=== PATIENT | female | born 1945 | race Caucasian/White ===

== ENCOUNTER 2019-09-30 13:21 | Inpatient (IN) ==
[2019-09-30] MEDS ORDERED: MAGNESIUM SULFATE 2 GM/50 ML BAG IV PRN (14:48)
[2019-09-30] MEDS ORDERED: POTASSIUM CHLORIDE 20 MEQ PACKET PO PRN (14:48)
[2019-09-30] MEDS ORDERED: ACETAMINOPHEN 325 MG TABLET PO PRN (14:48)
[2019-09-30] MEDS ORDERED: METOPROLOL TARTRATE 5 MG/5 ML VIAL IV PRN (14:48)
[2019-09-30] MEDS ORDERED: POLYETHYLENE GLYCOL 3350 17 GM PACKET PO PRN (14:48)
[2019-09-30] MEDS ORDERED: MELATONIN 3 MG TABLET PO PRN (14:48)
[2019-09-30] MEDS ORDERED: ONDANSETRON 4 MG ODT TABLET SL PRN (14:48)
[2019-09-30] MEDS ORDERED: BISACODYL 10 MG SUPP.RECT PR PRN (14:48)
[2019-09-30] MEDS ORDERED: ONDANSETRON 4 MG/2 ML VIAL IV PRN (14:48)
[2019-09-30] MEDS ORDERED: HYDROcodone/APAP 5/325MG TABLET PO PRN (14:48)
[2019-09-30] MEDS ORDERED: hydrALAZINE 20 MG/ML VIAL IV PRN (14:48)
[2019-09-30] MEDS ORDERED: ACETAMINOPHEN 650 MG/65 ML BOTTLE IV PRN (14:48)
--- NOTE | 2019-09-30 14:55 | Internal Med History&Physical ---
HPI History of Present Illness Patient information: Note initiated : 09/30/19 at 2:50 pm Service Date, if different from initiated Date: [] Patient: Jayne Mcknight a 74 y/o F admitted on 09/30/19 for Ankle Fracture . Chief Complaint: [] History of present illness: Ms. Mcknight is a 74 year old F with a history of PMR/COPD/CKD who normally uses a walker to ambulate. Patient lives in [place] and is out fertilizing her tomato plants when she got off balance and fell landing on her right side sustaining injury to the ankle. She was taken to the [place] ER where initial work-up was consistent with fracture dislocation right ankle. She underwent reduction and subsequently orthopedics was consulted. Orthopedic [facility] care for surgical intervention. I received a verbal signout from Madison garcia at [place] on telephone. On arrival patient is alert and oriented. She denies active distress except for pain. She endorses history as above. She denies respiratory events including lightheadedness dizziness, chest pain, palpitation. Labs and medication list was reviewed Review of systems 10 point review system was performed and is negative except for ones cussed above PFSH PFS Social History (Updated 09/30/19 @ 23:03 by Jameson Smith MD) smoking status: Never smoker additional history: No history of smoking alcoholism Lives alone Family history Diabetes father Leukemia mother MEDS/ALLERGIES Home Medications and Allergies Home Medications Medication Instructions Recorded Confirmed Type gabapentin [Neurontin] 400 mg PO HS 01/21/16 09/30/19 History nitroglycerin 0.4 mg SL Q5M PRN 01/21/16 09/30/19 History buspirone 15 mg PO BID 09/30/19 09/30/19 History celecoxib 100 mg PO DAILY 09/30/19 09/30/19 History clonidine HCl 0.1 mg PO BID 09/30/19 09/30/19 History enalapril maleate 10 mg PO DAILY 09/30/19 09/30/19 History famotidine 40 mg PO DAILY 09/30/19 09/30/19 History medroxyprogesterone 10 mg PO DAILY 09/30/19 09/30/19 History nortriptyline 30 mg PO HS 09/30/19 09/30/19 History omeprazole 20 mg PO DAILY 09/30/19 09/30/19 History ondansetron HCl 4 mg PO PRN PRN 09/30/19 09/30/19 History oxycodone [OxyContin] 10 mg PO Q12H 09/30/19 09/30/19 History sumatriptan succinate 50 mg PO PRN PRN 09/30/19 09/30/19 History tramadol 50 mg PO PRN PRN 09/30/19 09/30/19 History Allergies Allergy/AdvReac Type Severity Reaction Status Date / Time Sulfa (Sulfonamide Allergy Severe Unknown Verified 09/30/19 22:35 Antibiotics) theophylline Allergy Severe Difficulty Verified 09/30/19 22:35 Breathing amitriptyline Allergy Intermediate Unknown Verified 09/30/19 22:35 dimethicone Allergy Intermediate Verified 09/30/19 22:35 [From DermaSilkRx SDS] meperidine [From Demerol] Allergy Intermediate Hives Verified 09/30/19 22:35 morphine Allergy Intermediate Hives Verified 02/02/18 09:31 Paroxetine [From Paxil] Allergy Intermediate Verified 09/30/19 22:35 quinapril [From Accupril] Allergy Intermediate Verified 09/30/19 22:35 triamcinolone Allergy Intermediate Verified 09/30/19 22:35 [From DermaSilkRx SDS] doxycycline Allergy Unknown Unknown Verified 02/02/18 09:31 fentanyl Allergy Unknown Unknown Verified 02/02/18 09:31 losartan Allergy Unknown Unknown Verified 02/02/18 09:31 metoclopramide [From Reglan] Allergy Unknown Unknown Verified 02/02/18 09:31 propoxyphene Allergy Unknown Unknown Verified 02/02/18 09:31 [From Darvocet-N] EXAM Constitutional Vitals: Head normocephalic Oral cavity moist No ear nose discharge Eye movement symmetrical Neck supple no lymphadenopathy S1-S2 occasionally irregular Nonlabored breathing Nondistended nontender abdomen Right ankle fracture on splint Skin no suspicious lesion Psych anxious but alert cooperative Neuro normal higher function DATA Data Completed and Pending Labs on day of discharge: Labs from last 24 hours 09/30/19 14:37 COVID-19 PCR Pending A/P Narrative A/P Narrative: * Right ankle fracture- will manage as per orthopedics. Review postop. * Pain management on as needed opioids/Tylenol * Anxiety disorder continue BuSpar * Hypertension continue enalapril/clonidine * CKD stage III-monitor renal function * Chronic anemia * Neuropathy continue gabapentin/amitriptyline * GERD continue ranitidine/PPI * History of migraine use as needed sumatriptan * Chronic pain on oxycodone/hydrocodone * Prophylaxis will be on heparin Plan * Observation admit * Review postop * Pre-existing medical condition management as above * PT/OT, nutrition support * Discharge planning Time Spent With Patient Time: Total time spent is greater than 50% in coordination of care (as documented) at patient's floor/unit and/or counseling patient:
[2019-09-30] MEDS ORDERED: ceFAZolin 2 GM in DEXTROSE 5% IN WATER 50 ML IV SCH ×2 (15:15→18:00)
[2019-09-30] MEDS ORDERED: ceFAZolin 1 GM VIAL ONE (15:16)
[2019-09-30] MEDS ORDERED: MIDAZOLAM 2 MG/2 ML VIAL IV ONE (15:55)
[2019-09-30] MEDS ORDERED: PHENYLEPHRINE 10 MG/ML VIAL IV ONE (15:55)
[2019-09-30] MEDS ORDERED: GLYCOPYRROLATE 0.2 MG/ML VIAL IV ONE (15:55)
[2019-09-30] MEDS ORDERED: ROPIVACAINE HCL/PF 20 ML VIAL IJ ONE (15:55)
[2019-09-30] MEDS ORDERED: DEXAMETHASONE 10 MG/ML VIAL IV ONE (15:55)
[2019-09-30] MEDS ORDERED: ROCURONIUM 10 MG/ML ML IV ONE (15:55)
[2019-09-30] MEDS ORDERED: fentaNYL 100 MCG/2 ML VIAL IV ONE (15:55)
[2019-09-30] MEDS ORDERED: ONDANSETRON 4 MG/2 ML VIAL IV ONE (15:55)
[2019-09-30] MEDS ORDERED: SUGAMMADEX SODIUM 200 MG/2 ML VIAL IV ONE (15:55)
[2019-09-30] MEDS ORDERED: KETAMINE 100 MG/ML ML IV ONE (15:55)
[2019-09-30] MEDS ORDERED: PROPOFOL 200 MG/20 ML VIAL IV ONE (15:55)
[2019-09-30] MEDS ORDERED: LIDOCAINE HCL/PF 100 MG/5 ML SYRINGE IV ONE (15:55)
[2019-09-30] MEDS ORDERED: NALOXONE HCL 0.4 MG/ML VIAL IV PRN (17:04)
[2019-09-30] MEDS ORDERED: IPRATROPIUM/ALBUTEROL 3 ML AMPUL.NEB NEB PRN (17:04)
[2019-09-30] MEDS ORDERED: LACTATED RINGERS 250 ML IV PRN (17:04)
[2019-09-30] MEDS ORDERED: ACETAMINOPHEN 850 MG/85 ML BOTTLE IV ONE (17:04)
[2019-09-30] MEDS ORDERED: fentaNYL 100 MCG/2 ML VIAL IV PRN (17:04)
[2019-09-30] MEDS ORDERED: FLUMAZENIL 0.1 MG/ML ML IV PRN (17:04)
[2019-09-30] MEDS ORDERED: BENZOCAINE/MENTHOL 1 LOZENGE PO PRN (17:04)
[2019-09-30] MEDS ORDERED: LACTATED RINGERS 1,000 ML IV SCH (17:15)
[2019-09-30] MEDS ORDERED: FLEETS ADULT ENEMA PR PRN (17:50)
[2019-09-30] MEDS ORDERED: MAGNESIUM HYDROXIDE 30 ML ORAL.SUSP PO PRN (17:50)
--- NOTE | 2019-09-30 17:50 | Brief Operative Note ---
Brief Operative Note Date of procedure: 09/30/19 Pre-op diagnosis: Right closed trimalleolar ankle fracture dislocation Post-op diagnosis: same Procedure: Open treatment internal fixation of right closed trimalleolar ankle fracture dislocation Grafts/Implants: Yes (Synthes fibular plate) Anesthesia: GETA Findings: severe osteoporosis and comminution Complications: none Surgeon: Gerber Raya Sand Screener Operator: Hernan Eckert Estimated blood loss (cc): 15 Specimens Removed/Pathology: none sent Condition: stable Disposition: PACU
[2019-09-30] MEDS ORDERED: HYDROmorphone 1 MG/ML SYRINGE IV PRN (17:57)
--- NOTE | 2019-09-30 19:00 | Consultation ---
DATE OF CONSULTATION: 09/30/2019 CHIEF COMPLAINT: Right ankle fracture. HISTORY: This is a 74-year-old female who normally uses a walker to ambulate, was fertilizing her tomato plants and got off balance, injuring her right ankle. She was taken to the emergency department and x-rays showed a fracture dislocation. This was reduced in the ER up there and splinted, and I was consulted by phone. Pain is localized in her right ankle, made worse with movement, better with immobilization. Denies loss of consciousness or dizziness. PAST MEDICAL HISTORY: Polymyalgia rheumatica, COPD, chronic kidney disease, depression, hypertension, chronic pain, and gastroesophageal reflux. MEDICATIONS: Home meds include: 1. BuSpar. 2. Clonidine. 3. Enalapril. 4. Gabapentin. 5. Hydrocodone. 6. Medroxyprogesterone. 7. Nitroglycerin. 8. Nortriptyline. 9. Omeprazole. 10. Oxycodone. 11. Polyethylene glycol. 12. Ranitidine. 13. Sumatriptan. 14. Nitrofurantoin. ALLERGIES: EXTENSIVE AND INCLUDE MEPERIDINE, ACETAMINOPHEN, MORPHINE, AMITRIPTYLINE, DOXYCYCLINE, FENTANYL, LOSARTAN, METOCLOPRAMIDE, PENICILLINS, PROPOXYPHENE, SULFA AND THEOPHYLLINE. SOCIAL HISTORY: She denies smoking, does live alone, is barely able to remain independent. FAMILY HISTORY: Noncontributory. REVIEW OF SYSTEMS: Positive per the HPI. PHYSICAL EXAMINATION: VITAL SIGNS: She is afebrile. Vital signs are stable. GENERAL: She appears stated age, in no acute distress. She is oriented to person, place. Mood and affect are appropriate. EXTREMITIES: Bilateral upper extremities and left lower extremity show no obvious evidence of trauma and are relatively normal for inspection, range of motion, stability, and strength at least per her normal. The right lower extremity shows a splint in place. Ankle is swollen. Skin is unable to be assessed due to the splint. Per discussion with Dr. Faulkner, it was intact. She has limited range of motion. Fracture was unstable. Strength is 3/5 with toe flexion and extension. Cap refill is brisk. IMAGING DATA: X-rays reviewed from [place] show a trimalleolar ankle fracture dislocation. Post-reduction is nearly anatomic. The posterior malleolar fracture appears to be nearly half of the articular weightbearing surface of the distal tibia. IMPRESSION: Right closed trimalleolar fracture dislocation in a 74-year-old barely independent female who has significant multiple other medical comorbidities and has high risk for fall. PLAN: I recommend proceeding with urgent open treatment and internal fixation of the right trimalleolar ankle fracture dislocation, closed. Risks of surgery include, but not limited to bleeding, infection, injury to nerves, blood vessels, or other surrounding structures, anesthetic risks, nonunion or malunion of fracture, failure of hardware fixation, stiffness, pain, swelling, possibility of needing further surgeries, such as hardware removal. She understands and wished to proceed. Postoperatively, she will need to be admitted and case management consulted as she will likely need placement in a [place] [facility] [place] [facility] facility as she was barely able to be independent prior to this fall. She will be nonweightbearing on this postoperatively, which will make her high risk for fall and difficult to be independent. We will anticipate her being here several midnights until she can be placed in a [place] [facility] [place] [facility] facility. ANTOINE:charlene Job ID: [id number] Doc ID: [id number] Gerber Raya MD
[2019-09-30] MEDS: fentaNYL 100 MCG/2 ML VIAL IV PRN ×2 (19:19→19:34)
[2019-09-30] MEDS ORDERED: METHOCARBAMOL 1,000 MG/10 ML VIAL IV ONE (19:29)
[2019-09-30] MEDS ORDERED: METHOCARBAMOL 1,000 MG/10 ML VIAL ONE (19:31)
[2019-09-30] MEDS: DOCUSATE SODIUM 100 MG CAPSULE PO SCH (21:52)
[2019-09-30] MEDS: SENNOSIDES 1 TABLET PO SCH (21:52)
[2019-09-30] MEDS: SENNOSIDES/DOCUSATE SODIUM 1 TAB TABLET PO SCH (21:52)
[2019-09-30] MEDS: HYDROcodone/APAP 10/325MG TABLET PO PRN (21:52)
[2019-09-30] MEDS: HEPARIN 5,000 UNIT/ML VIAL SQ SCH (21:53)
[2019-09-30] MEDS: 0.9 % SODIUM CHLORIDE 10 ML SYRINGE IV SCH (22:02)
[2019-09-30] MEDS: ceFAZolin 1 GM VIAL IV SCH (23:13)
[2019-10-01] MEDS: 0.9 % SODIUM CHLORIDE 1,000 ML IV SCH ×3 (00:30→21:39)
--- NOTE | 2019-10-01 05:30 | XRay Report ---
CLINICAL INFORMATION: post op COMPARISON: None. FINDINGS: Trimalleolar fracture has been reduced anatomic alignment. Lateral malleolar component is transfixed by side plate and screws and the medial/ posterior malleolar component is transfixed by multiple screws. Mild degenerative change seen ankle mortise and talocalcaneal joints. There is severe degeneration of the navicular cuneiform joints and likely fusion in the intercuneiform and cuboidal cuneiform joints. The mid foot is not well profiled on these ankle films IMPRESSION: ORIF trimalleolar fracture anatomic alignment Interpreted and Authenticated by: Avery St 10/01/19
--- NOTE | 2019-10-01 05:38 | XRay Report ---
CLINICAL INFORMATION: 2 view left knee; valgus laxity s/p fall COMPARISON: 02/10/2016 FINDINGS: Longstem total knee prostheses remain anatomic alignment without loosening or infection. The patella is diminutive, fragmented and positioned superiorly There is a cerclage wire which appears to transfix the subtrochanteric cortex of the anterior femoral condylar region to the proximal tibial metaphysis. It is not well-visualized. This is unchanged radiographically. IMPRESSION: Total knee prostheses in anatomic alignment without loosening or infection. No evidence of fracture or acute posttraumatic change Interpreted and Authenticated by: Avery St 10/01/19
[2019-10-01] MEDS: HYDROcodone/APAP 10/325MG TABLET PO PRN ×5 (05:43→20:46)
[2019-10-01] MEDS: 0.9 % SODIUM CHLORIDE 10 ML SYRINGE IV SCH ×3 (06:50→20:47)
[2019-10-01] MEDS: ceFAZolin 1 GM VIAL IV SCH (07:01)
[2019-10-01 08:59] LABS: Hematocrit 28.4 % (34.1-44.9); Hemoglobin 8.8 g/dL (11.2-15.7); Mean Cell Volume 92.2 fL (80.0-100.0); Mean Platelet Volume 10.5 fL (7.4-10.4); Platelet Count 217 K/mcL (140-440); RBC 3.08 M/mcL (3.59-5.38); WBC 6.7 K/mcL (4.50-11.00)
[2019-10-01] MEDS ORDERED: HEPARIN 5,000 UNIT/ML VIAL SQ SCH (09:00)
[2019-10-01 09:19] LABS: Bilirubin,Direct < 0.2 mg/dL (0.0-0.3); Chloride 102 mmol/L (96-108)
[2019-10-01 09:26] LABS: ALT/SGPT 8 U/l (0-40); AST/SGOT 18 U/l (0-37); Albumin 2.9 gm/dL (3.2-5.2); Albumin/Globulin Ratio 1.2 (1.0-2.3); Alkaline Phosphatase 49 U/L (39-117); Bilirubin,Total 0.2 mg/dL (0.0-1.0); Blood Urea Nitrogen 37 mg/dl (8-23); Carbon Dioxide 19 mmol/L (22-30); Globulin 2.5 gm/dL (2.2-3.7); Glomerular Filtration Rate 40; Glucose 134 mg/dL (70-105); Lactate Dehydrogenase 182 U/L (94-250); Phosphorous 3.7 mg/dL (2.7-4.5); Triglycerides 59 mg/dl (<150); Uric Acid 6.5 mg/dL (2.5-8.0)
[2019-10-01] MEDS: MULTIVIT,THER IRON,CA,FA & MIN 1 TABLET PO SCH (09:43)
[2019-10-01] MEDS: DOCUSATE SODIUM 100 MG CAPSULE PO SCH ×2 (09:43→20:43)
[2019-10-01] MEDS: HEPARIN 5,000 UNIT/ML VIAL SQ SCH ×2 (09:44→20:46)
[2019-10-01 10:03] LABS: Band Neutrophils % 3 % (0-10); Lymphocytes % 18 % (15-49); Monocytes % (Manual) 5 % (1-12); Platelet Estimate NORMAL (NORMAL); RBC Morphology NORMAL (NORMAL); Segmented Neutrophils % 74 % (38-78)
--- NOTE | 2019-10-01 10:28 | Brief Operative Note ---
Brief Operative Note Date of procedure: 10/01/19
--- NOTE | 2019-10-01 10:49 | Orthopedic Progress Note ---
SUBJECTIVE Subjective Patient information: Note initiated : 10/01/19 at 10:47 am Service Date, if different from initiated Date: [] Patient: Jayne Mcknight 74 y/o F admitted on 09/30/19 for Ankle Fracture . Chief Complaint: Mild pain. Constitutional Vitals: Vital Signs Temp Pulse Resp BP Pulse Ox 98.9 F 74 18 157/79 97 10/01/19 08:23 10/01/19 08:23 10/01/19 08:23 10/01/19 08:23 10/01/19 08:23 Period Temp Pulse Resp BP Sys/Rivera Pulse Ox Last 24 Hr 97.5 F-98.9 F 59-94 12-18 103-172/52-99 93-100 Intake and Output 09/30/19 10/01/19 10/01/19 21:59 05:59 13:59 Intake Total 1085 690 Output Total 1025 Balance 1085 -335 Weight 134 lb 6.4 oz Intake & Output: Intake & Output 09/30/19 10/01/19 10/01/19 21:59 05:59 13:59 Intake Total 1085 690 Output Total 1025 Balance 1085 -335 Weight 134 lb 6.4 oz Intake: IV 85 Oral 690 IV - Manual Only 1000 Output: Void Amount 1025 Other: Meal Dinner Percent of Meal Consumed 100% Feeding Ability Assist with Tray Set Up Urine Appearance Clear Urine Color Bright Yellow Bright Yellow Urine Odor Normal # Voids 1 OBJ DATA Labs CBC & Chem 7: 10/01/19 06:19 10/01/19 06:19 Labs: Abnormal Lab Results 10/01/19 10/01/19 06:19 06:19 RBC 3.08 L Hgb 8.8 L Hct 28.4 L MPV 10.5 H Potassium 5.2 H Carbon Dioxide 19 L BUN 37 H Creatinine 1.3 H Glucose 134 H Calcium 8.0 L Total Protein 5.4 L Albumin 2.9 L Bandages C/D/I NVI-distal Meds: Medications Acetaminophen (Tylenol) 650 mg PO Q4-6HP PRN; Protocol PRN Reason: Per Pain Protocol/Fever > 101 Hydrocodone Bitart/Acetaminophen ([place] 10/325mg) 0 tab PO Q4HP PRN; Protocol PRN Reason: Per Pain Protocol Last Admin: 08/09/20 10:43 Dose: 1 tab Documented by: Bisacodyl (Dulcolax) 10 mg LA Q2-3DAYS PRN PRN Reason: Constipation Docusate Sodium (Colace) 100 mg PO BID [facility] Last Admin: 10/01/19 09:43 Dose: 100 mg Documented by: Heparin Sodium (Porcine) (Heparin) 5,000 unit SQ Q12 [facility] Last Admin: 10/01/19 09:44 Dose: 5,000 unit Documented by: Hydralazine HCl (Apresoline) 10 mg IV Q4-6HP PRN PRN Reason: Hypertension Hydromorphone HCl (Dilaudid) 0 mg IV Q2HP PRN; Protocol PRN Reason: Per Pain Protocol Last Admin: 10/01/19 00:30 Dose: 0.5 mg Documented by: Sodium Chloride (Sodium Chloride 0.9%) 1,000 mls @ 50 mls/hr IV .Q20H [facility] Stop: 10/03/19 02:59 Last Admin: 10/01/19 00:30 Dose: 50 mls/hr Documented by: Acetaminophen (Ofirmev) 650 mg in 65 mls @ 130 mls/hr IV Q6HP PRN; Protocol PRN Reason: Per Pain Protocol/Fever > 101 Magnesium Sulfate (Magnesium Sulfate) 2 gm in 50 mls @ 50 mls/hr IV UD PRN PRN Reason: MG = or < 1.7 Iron Carb/Multivit/Block Piler/Folic Acid (Multivitamin W/Minerals) 1 tab PO DAILY [facility] Last Admin: 10/01/19 09:43 Dose: 1 tab Documented by: Magnesium Hydroxide (Milk Of Magnesia) 30 ml PO BIDP PRN PRN Reason: Constipation Melatonin (Melatonin 3mg Tablet) 3 mg PO HSP PRN PRN Reason: Insomnia Metoprolol Tartrate (Lopressor) 5 mg IV Q5M PRN PRN Reason: Heart Rate > 140 bpm Ondansetron HCl (Zofran Odt) 4 mg SL Q4-6HP PRN; Protocol PRN Reason: Nausea And Vomiting Ondansetron HCl (Zofran) 4 mg IV Q4-6HP PRN; Protocol PRN Reason: Nausea And Vomiting Polyethylene Glycol (Miralax) 17 gm PO DAILYP PRN PRN Reason: Constipation Potassium Chloride (Klor-Con) 40 meq PO DAILYP PRN PRN Reason: K+ < 3.5 Senna (Senokot) 2 tab PO HS [facility] Last Admin: 09/30/19 21:52 Dose: 2 tab Documented by: Senna/Docusate Sodium (Senna Plus Tablet) 1 tab PO HS [facility] Last Admin: 09/30/19 21:52 Dose: 1 tab Documented by: Sodium Biphosphate/Sodium Phosphate (Fleets Adult) 1 dose LA Q3-4DAYS PRN PRN Reason: Constipation Sodium Chloride (Saline Flush) 10 ml IV Q8 [facility] Last Admin: 10/01/19 06:50 Dose: Not Given Documented by: A/P Assessment and plan (1) Trimalleolar fracture of ankle, closed: Status: Acute Comment: Pt doing well. Discharge tomorrow. Time Spent With Patient Time: Total time spent is greater than 50% in coordination of care (as documented) at patient's floor/unit and/or counseling patient:
--- NOTE | 2019-10-01 12:02 | Internal Med Progress Note ---
SUBJECTIVE Subjective Patient information: Note initiated : 10/01/19 at 11:58 am Service Date, if different from initiated Date: [] Patient: Jayne Mcknight 74 y/o F admitted on 09/30/19 for Ankle Fracture . Chief Complaint: Ms. Mcknight is a 74 year old F with a history of PMR/COPD/CKD who normally uses a walker to ambulate. Patient lives in [place] and is out fertilizing her tomato plants when she got off balance and fell landing on her right side sustaining injury to the ankle. She was taken to the [place] ER where initial work-up was consistent with fracture dislocation right ankle. She underwent reduction and subsequently orthopedics was consulted. Orthopedic recommended transferring patient to [facility] for surgical intervention. I received a verbal signout from Madison garcia at [place] on telephone. On arrival patient is alert and oriented. She denies active distress except for pain. She endorses history as above. She denies respiratory events including lightheadedness dizziness, chest pain, palpitation. Labs and medication list was reviewed 09/30-patient postop day 1 trimalleolar ankle fracture repair. Complains of significant pain on pain management as per orthopedics. No overnight fever chills. Stable hemodynamics. Potassium 5.2 creatinine 1.3. Discharge planning per orthopedics. Constitutional Vitals: Vital Signs Temp Pulse Resp BP Pulse Ox 98.9 F 74 18 157/79 97 10/01/19 08:23 10/01/19 08:23 10/01/19 08:23 10/01/19 08:23 10/01/19 08:23 Period Temp Pulse Resp BP Sys/Rivera Pulse Ox Last 24 Hr 97.5 F-98.9 F 59-94 12-18 103-172/52-99 93-100 Intake and Output 09/30/19 10/01/19 10/01/19 21:59 05:59 13:59 Intake Total 1085 690 120 Output Total 1025 500 Balance 1085 -223 -380 Weight 60.963 kg alert oriented Nonlabored breathing No anxiety Intake & Output: Intake & Output 09/30/19 10/01/19 10/01/19 21:59 05:59 13:59 Intake Total 1085 690 120 Output Total 1025 500 Balance 1085 -998 -380 Weight 60.963 kg Intake: IV 85 Oral 690 120 IV - Manual Only 1000 Output: Void Amount 1025 500 Other: Meal Dinner Breakfast Percent of Meal Consumed 100% 75% Feeding Ability Assist with Tray Set Up Urine Appearance Clear Urine Color Bright Yellow Bright Yellow Urine Odor Normal # Voids 1 OBJ DATA Labs CBC & Chem 7: 10/01/19 06:19 10/01/19 06:19 Labs: Abnormal Lab Results 10/01/19 10/01/19 06:19 06:19 RBC 3.08 L Hgb 8.8 L Hct 28.4 L MPV 10.5 H Potassium 5.2 H Carbon Dioxide 19 L BUN 37 H Creatinine 1.3 H Glucose 134 H Calcium 8.0 L Total Protein 5.4 L Albumin 2.9 L Meds: Medications Acetaminophen (Tylenol) 650 mg PO Q4-6HP PRN; Protocol PRN Reason: Per Pain Protocol/Fever > 101 Hydrocodone Bitart/Acetaminophen ([place] 10/325mg) 0 tab PO Q4HP PRN; Protocol PRN Reason: Per Pain Protocol Last Admin: 10/01/19 10:43 Dose: 1 tab Documented by: Bisacodyl (Dulcolax) 10 mg SC Q2-3DAYS PRN PRN Reason: Constipation Docusate Sodium (Colace) 100 mg PO BID [facility] Last Admin: 10/01/19 09:43 Dose: 100 mg Documented by: Heparin Sodium (Porcine) (Heparin) 5,000 unit SQ Q12 [facility] Last Admin: 10/01/19 09:44 Dose: 5,000 unit Documented by: Hydralazine HCl (Apresoline) 10 mg IV Q4-6HP PRN PRN Reason: Hypertension Hydromorphone HCl (Dilaudid) 0 mg IV Q2HP PRN; Protocol PRN Reason: Per Pain Protocol Last Admin: 10/01/19 00:30 Dose: 0.5 mg Documented by: Sodium Chloride (Sodium Chloride 0.9%) 1,000 mls @ 50 mls/hr IV .Q20H [facility] Stop: 10/03/19 02:59 Last Admin: 10/01/19 00:30 Dose: 50 mls/hr Documented by: Acetaminophen (Ofirmev) 650 mg in 65 mls @ 130 mls/hr IV Q6HP PRN; Protocol PRN Reason: Per Pain Protocol/Fever > 101 Magnesium Sulfate (Magnesium Sulfate) 2 gm in 50 mls @ 50 mls/hr IV UD PRN PRN Reason: MG = or < 1.7 Iron Carb/Multivit/Doll Wigs Hackler/Folic Acid (Multivitamin W/Minerals) 1 tab PO DAILY [facility] Last Admin: 10/01/19 09:43 Dose: 1 tab Documented by: Magnesium Hydroxide (Milk Of Magnesia) 30 ml PO BIDP PRN PRN Reason: Constipation Melatonin (Melatonin 3mg Tablet) 3 mg PO HSP PRN PRN Reason: Insomnia Metoprolol Tartrate (Lopressor) 5 mg IV Q5M PRN PRN Reason: Heart Rate > 140 bpm Ondansetron HCl (Zofran Odt) 4 mg SL Q4-6HP PRN; Protocol PRN Reason: Nausea And Vomiting Ondansetron HCl (Zofran) 4 mg IV Q4-6HP PRN; Protocol PRN Reason: Nausea And Vomiting Polyethylene Glycol (Miralax) 17 gm PO DAILYP PRN PRN Reason: Constipation Potassium Chloride (Klor-Con) 40 meq PO DAILYP PRN PRN Reason: K+ < 3.5 Senna (Senokot) 2 tab PO [facility] Last Admin: 09/30/19 21:52 Dose: 2 tab Documented by: Senna/Docusate Sodium (Senna Plus Tablet) 1 tab PO [facility] Last Admin: 09/30/19 21:52 Dose: 1 tab Documented by: Sodium Biphosphate/Sodium Phosphate (Fleets Adult) 1 dose SC Q3-4DAYS PRN PRN Reason: Constipation Sodium Chloride (Saline Flush) 10 ml IV Q8 [facility] Last Admin: 10/01/19 06:50 Dose: Not Given Documented by: A/P Assessment and plan (1) Trimalleolar fracture of ankle, closed: Status: Acute Comment: Pt doing well. Discharge tomorrow. Narrative A/P Narrative: * Right ankle fracture-postop day 1. Managed per orthopedics. * Pain management on as needed opioids/Tylenol * Anxiety disorder stable on home dose BuSpar * Hypertension Continue home dose enalapril/clonidine * CKD stage III-monitor renal function. Creatinine 1.3 * Chronic anemia- Hgb 8.8 * Neuropathy continue gabapentin/amitriptyline * GERD continue ranitidine/PPI * History of migraine use as needed sumatriptan * Chronic pain on oxycodone/hydrocodone * Prophylaxis will be on heparin Plan * Continue postop care per orthopedics * Pre-existing medical condition management as above * PT/OT, nutrition support * Discharge planning orthopedics Time Spent With Patient Time: Total time spent is greater than 50% in coordination of care (as docum ented) at patient's floor/unit and/or counseling patient: QUALITY Stroke Symptom Onset Unknown: No VTE Deep Vein Thrombosis/Pulmonary Embolism Present on Admission: No
[2019-10-01] MEDS ORDERED: SUMAtriptan SUCCINATE 50 MG TABLET PO PRN (12:04)
[2019-10-01] MEDS ORDERED: ONDANSETRON HCL 4 MG PO PRN (12:04)
[2019-10-01] MEDS ORDERED: traMADol 50 MG TABLET PO PRN ×2 (12:04→12:20)
[2019-10-01] MEDS ORDERED: NITROGLYCERIN 0.4 MG TAB.SUBL SL PRN (12:14)
[2019-10-01] MEDS: oxyCODONE 10 MG TAB.ER.12H PO SCH ×2 (12:29→23:45)
[2019-10-01] MEDS: NORTRIPTYLINE 10 MG CAPSULE PO SCH (20:43)
[2019-10-01] MEDS: GABAPENTIN 100 MG CAPSULE PO SCH (20:43)
[2019-10-01] MEDS: cloNIDine HCL 0.1 MG TABLET PO SCH (20:44)
[2019-10-01] MEDS: busPIRone 15 MG TABLET PO SCH (20:46)
[2019-10-01] MEDS: SENNOSIDES/DOCUSATE SODIUM 1 TAB TABLET PO SCH (20:47)
[2019-10-01] MEDS: SENNOSIDES 1 TABLET PO SCH (20:47)
[2019-10-02] MEDS: 0.9 % SODIUM CHLORIDE 10 ML SYRINGE IV SCH ×3 (04:03→21:00)
[2019-10-02] MEDS: HYDROcodone/APAP 10/325MG TABLET PO PRN ×3 (04:15→16:14)
[2019-10-02 06:50] LABS: Hematocrit 26.7 % (34.1-44.9); Hemoglobin 8.6 g/dL (11.2-15.7); Mean Corpuscular HGB Conc 32.2 g/dL (31.0-36.0); Mean Platelet Volume 10.2 fL (7.4-10.4); Platelet Count 223 K/mcL (140-440); WBC 7.4 K/mcL (4.50-11.00)
[2019-10-02 07:38] LABS: Bilirubin,Direct < 0.2 mg/dL (0.0-0.3); Chloride 105 mmol/L (96-108)
[2019-10-02 07:39] LABS: ALT/SGPT < 5 U/l (0-40); AST/SGOT 17 U/l (0-37); Albumin 2.9 gm/dL (3.2-5.2); Albumin/Globulin Ratio 1.1 (1.0-2.3); Alkaline Phosphatase 47 U/L (39-117); Bilirubin,Total 0.2 mg/dL (0.0-1.0); Blood Urea Nitrogen 27 mg/dl (8-23); Calcium 8.1 mg/dl (8.6-10.4); Carbon Dioxide 16 mmol/L (22-30); Globulin 2.7 gm/dL (2.2-3.7); Glomerular Filtration Rate 55; Glucose 104 mg/dL (70-105); Lactate Dehydrogenase 190 U/L (94-250); Phosphorous 2.4 mg/dL (2.7-4.5); Triglycerides 139 mg/dl (<150); Uric Acid 5.5 mg/dL (2.5-8.0)
[2019-10-02] MEDS: 0.9 % SODIUM CHLORIDE 1,000 ML IV SCH (08:16)
[2019-10-02] MEDS: OMEPRAZOLE 20 MG CAPSULE PO SCH (08:16)
[2019-10-02] MEDS: MULTIVIT,THER IRON,CA,FA & MIN 1 TABLET PO SCH (08:17)
[2019-10-02] MEDS: DOCUSATE SODIUM 100 MG CAPSULE PO SCH ×2 (08:17→20:58)
[2019-10-02] MEDS: FAMOTIDINE 20 MG TABLET PO SCH (08:17)
[2019-10-02] MEDS: busPIRone 15 MG TABLET PO SCH ×2 (08:18→20:58)
[2019-10-02] MEDS: cloNIDine HCL 0.1 MG TABLET PO SCH ×2 (08:18→20:58)
[2019-10-02] MEDS: LISINOPRIL 10 MG TABLET PO SCH (08:18)
[2019-10-02] MEDS: HEPARIN 5,000 UNIT/ML VIAL SQ SCH ×2 (08:20→20:58)
[2019-10-02] MEDS: medroxyPROGESTERone 10 MG TABLET PO SCH (08:20)
--- NOTE | 2019-10-02 08:26 | XRay Report ---
HISTORY: Interval change, ankle fracture FINDINGS: Right diaphragm is mildly elevated of undetermined etiology. Mildly prominent increased interstitial lung markings are present bilaterally, especially in the right lower lobe. This may be crowding of normal pulmonary vascular markings related to the suboptimal inspiration, interstitial inflammation or possibly mild interstitial fibrosis. There is no consolidation and no evidence of a mass, congestive heart failure or pleural effusion. The heart size is normal. Patient has bilateral shoulder prosthesis. There is a nerve stimulator in the midthoracic spinal canal. Scoliotic curvature is present in the thoracic and lumbar spine. No prior study is available for comparison at this time. IMPRESSION: Mildly prominent increased interstitial lung markings as described above, which could be normal crowded pulmonary vascular structures, fibrosis or inflammation Interpreted and Authenticated by: Liam Pizano 10/02/19
--- NOTE | 2019-10-02 08:45 | Operative Note ---
DATE OF OPERATION: 09/30/2019 PREOPERATIVE DIAGNOSIS: Right closed trimalleolar ankle fracture dislocation. POSTOPERATIVE DIAGNOSIS: Right closed trimalleolar ankle fracture dislocation. PROCEDURE PERFORMED: Open treatment and internal fixation of right closed trimalleolar ankle fracture dislocation of all three malleoli, using Synthes hardware. SURGEON: Gerber Raya MD INTERNAL GRINDER SET UP OPERATOR: Juancho Eckert PA-C. This provider's expertise and technical skill were required throughout the case. The PA assisted with preoperative coordination, intraoperative retraction, wound closure, dressing and splint application, as well as postoperative documentation and care coordination. ANESTHESIA: General. DRAINS: None. SPECIMENS: None. COMPLICATIONS: None. BLOOD LOSS: 15 mL POSTOPERATIVE CONDITION: Stable. INDICATIONS FOR SURGERY: This is a 74-year-old female who fell and twisted her ankle. She was taken to the ER and x-rays showed a fracture dislocation of the ankle. FINDINGS AT SURGERY: She had severe osteoporosis and comminution. Post-fixation showed acceptable hardware position and fracture reduction. PROCEDURE IN DETAIL: The patient had been seen preoperatively. Informed consent had been obtained after discussion of risks, benefits of surgery. Risks including, but not limited to, bleeding; infection; injury to nerves, blood vessels, and other surrounding structures; anesthetic risks; nonunion or malunion of the fracture; failure of hardware fixation, stiffness, pain, possibility of needing further surgery such as hardware removal or ankle fusion. She understood these risks and wished to proceed. Correct operative site was marked and the patient was taken to the operating room. General anesthesia induced. She was carefully positioned in the prone position and then pressure points carefully padded. The right lower extremity was then carefully prepped and draped in normal sterile fashion and a timeout was performed verifying patient name, operative site, and plan. Esmarch was used to exsanguinate the extremity and tourniquet was inflated to 300 mmHg. A posterior lateral incision was made along the posterior border of the fibula with a scalpel through skin and subcutaneous tissue. We continued sharp dissection down onto the fibula. Hemostasis was obtained with Bovie cautery and then a fibula was exposed subperiosteally with Bovie. There was comminution of the fibula and severe osteoporosis. We chose a locking Synthes fibular plate of appropriate length to give us three screws proximal to the fracture. I then reduced the fracture with a lobster claw clamp and then placed the plate underneath. We drilled and placed nonlocking screw in the slotted screw and then checked with fluoroscopy. We made minor adjustments and then drilled and placed three bicortical locking screws proximal to the fracture. We then drilled and filled the distal cluster carefully keeping these unicortical so as to not penetrate the ankle joint. Once we had filled all the holes distally and checked with fluoro and liked our reduction, we then went to the medial side and made a vertical incision over the medial malleolus. This was also quite comminuted. We made a small drill hole and reduced the fracture under direct visualization and 2 guide pins were placed from the 4-0 cannulated set. We then checked with fluoroscopy after placing the pins and liked them. We then placed two 50 mm 4-0 cannulated screws with washers. This gave a satisfactory fracture fixation. We then returned to the lateral side and dissected posterior to the peroneal tendons. We incised the fascia and then exposed the posterior malleolus. A ball tip pusher and some dorsiflexion of the ankle were used to reduce the fracture and then 3 guide pins for the 4-0 cannulated screws were placed from posterior to anterior. Fluoro was checked to verify these did not penetrate the articular surface and then depth gauge was used. We then placed three 4-0 cannulated screws with washers in a triangular pattern. Two were distal and one proximal. Once all these three screws were placed guide pins were removed. Fluoro was taken and at this point we noted a cortical piece had fragmented off the medial malleolus, so we returned to the medial side. We reduced the comminuted fragment and then placed a guide pin and then placed a 4-0 cannulated screw perpendicular to it to stabilize this. We checked with fluoro and this showed good overall glenny fracture reduction and hardware position. We took AP, mortise, and lateral views and saved these. We then irrigated with IrriSept, copiously. After a minute we irrigated with saline. Laterally, we closed the periosteum over the plate as much as possible. Medially, there was really no good tissue to close, so we went to the 2-0 Monocryl and then laura for skin. Local anesthetic was injected. Xeroform sterile dressings were applied. Tourniquet was released and she was placed in a fracture boot. The patient was then turned supine, awakened, extubated, and transferred to recovery in stable condition. BJB:dion Job ID: [id number] Doc ID: [id number] Gerber Raya MD
[2019-10-02] MEDS: oxyCODONE 10 MG TAB.ER.12H PO SCH ×2 (09:20→20:59)
[2019-10-02 09:29] LABS: Eosinophils % (Manual) 1 % (0-7); Lymphocytes % 14 % (15-49); Monocytes % (Manual) 9 % (1-12); Platelet Estimate NORMAL (NORMAL); RBC Morphology NORMAL (NORMAL); Segmented Neutrophils % 76 % (38-78)
--- NOTE | 2019-10-02 10:49 | Internal Med Progress Note ---
SUBJECTIVE Subjective Patient information: Note initiated : 10/02/19 at 10:47 am Service Date, if different from initiated Date: [] Patient: Jayne Mcknight a 74 y/o F admitted on 09/30/19 for Ankle Fracture . Chief Complaint: [] Ms. Mcknight is a 74 year old F with a history of PMR/COPD/CKD who normally uses a walker to ambulate. Patient lives in [place] and is out fertilizing her tomato plants when she got off balance and fell landing on her right side sustaining injury to the ankle. She was taken to the [place] ER where initial work-up was consistent with fracture dislocation right ankle. She underwent reduction and subsequently orthopedics was consulted. Orthopedic recommended transferring patient to [facility] for surgical intervention. I received a verbal signout from Madison garcia at [place] on telephone. On arrival patient is alert and oriented. She denies active distress except for pain. She endorses history as above. She denies respiratory events including lightheadedness dizziness, chest pain, palpitation. Labs and medication list was reviewed 09/30-patient postop day 1 trimalleolar ankle fracture repair. Complains of significant pain on pain management as per orthopedics. No overnight fever chills. Stable hemodynamics. Potassium 5.2 creatinine 1.3. Discharge planning per orthopedics. 10/01-patient clinically improved however requiring 2 person max assist. Case management coordinating SNF transfer as per recommendation of orthopedics. Ongoing PT OT. Postop pain in good control. Hemoglobin 8.6, potassium down to 4.3, creatinine down to 1. Phosphorus 2.4 on replacement. Constitutional Vitals: Vital Signs Temp Pulse Resp BP Pulse Ox 98.9 F 86 18 146/72 95 10/02/19 06:55 10/02/19 06:55 10/02/19 06:55 10/02/19 06:55 10/02/19 06:55 Period Temp Pulse Resp BP Sys/Rivera Pulse Ox Last 24 Hr 98.2 F-98.9 F 66-88 14-18 146-174/65-88 94-97 Intake and Output 10/01/19 10/02/19 10/02/19 21:59 05:59 13:59 Intake Total 1000 200 Output Total 500 450 Balance 500 -250 Weight 62.284 kg Intake & Output: Intake & Output 10/01/19 10/02/19 10/02/19 21:59 05:59 13:59 Intake Total 1000 200 Output Total 500 450 Balance 500 -250 Weight 62.284 kg Intake: IV 1000 Sodium Chloride 0.9% 1,000 ml @ 1000 50 mls/hr IV .Q20H [facility] Rx#: [id number] Oral 200 Output: Void Amount 500 450 Other: Urine Appearance Clear Clear Urine Color Dark Yellow Bright Yellow Urine Odor Strong OBJ DATA Labs CBC & Chem 7: 10/02/19 05:40 10/02/19 05:40 Labs: Abnormal Lab Results 10/02/19 10/02/19 10/01/19 05:40 05:40 06:19 RBC 3.00 L Hgb 8.6 L Hct 26.7 L MPV Lymphocytes % 14 L Potassium 5.2 H Carbon Dioxide 16 L 19 L BUN 27 H 37 H Creatinine 1.3 H Glucose 134 H Calcium 8.1 L 8.0 L Phosphorus 2.4 L Total Protein 5.6 L 5.4 L Albumin 2.9 L 2.9 L 10/01/19 06:19 RBC 3.08 L Hgb 8.8 L Hct 28.4 L MPV 10.5 H Lymphocytes % Potassium Carbon Dioxide BUN Creatinine Glucose Calcium Phosphorus Total Protein Albumin Meds: Medications Acetaminophen (Tylenol) 650 mg PO Q4-6HP PRN; Protocol PRN Reason: Per Pain Protocol/Fever > 101 Last Admin: 10/01/19 13:58 Dose: 650 mg Documented by: Hydrocodone Bitart/Acetaminophen ([place] 10/325mg) 1 - 2 tab PO Q4HP PRN; Protocol PRN Reason: Per Pain Protocol Last Admin: 10/02/19 10:28 Dose: 1 tab Documented by: Bisacodyl (Dulcolax) 10 mg DE Q2-3DAYS PRN PRN Reason: Constipation Buspirone HCl (Buspar) 15 mg PO BID [facility] Last Admin: 10/02/19 08:18 Dose: 15 mg Documented by: Clonidine HCl (Catapres) 0.1 mg PO BID [facility] Last Admin: 10/02/19 08:18 Dose: 0.1 mg Documented by: Docusate Sodium (Colace) 100 mg PO BID [facility] Last Admin: 10/02/19 08:17 Dose: 100 mg Documented by: Famotidine (Pepcid) 40 mg PO DAILY [facility] Last Admin: 10/02/19 08:17 Dose: 40 mg Documented by: Gabapentin (Neurontin) 400 mg PO HS [facility] Last Admin: 10/01/19 20:43 Dose: 400 mg Documented by: Heparin Sodium (Porcine) (Heparin) 5,000 unit SQ Q12 [facility] Last Admin: 10/02/19 08:20 Dose: 5,000 unit Documented by: Hydralazine HCl (Apresoline) 10 mg IV Q4-6HP PRN PRN Reason: Hypertension Sodium Chloride (Sodium Chloride 0.9%) 1,000 mls @ 50 mls/hr IV .Q20H [facility] Stop: 10/03/19 02:59 Last Admin: 10/02/19 08:16 Dose: Not Given Documented by: Acetaminophen (Ofirmev) 650 mg in 65 mls @ 130 mls/hr IV Q6HP PRN; Protocol PRN Reason: Per Pain Protocol/Fever > 101 Magnesium Sulfate (Magnesium Sulfate) 2 gm in 50 mls @ 50 mls/hr IV UD PRN PRN Reason: MG = or < 1.7 Last Admin: 10/01/19 14:14 Dose: 50 mls/hr Documented by: Iron Carb/Multivit/[place]/Folic Acid (Multivitamin W/Minerals) 1 tab PO DAILY [facility] Last Admin: 10/02/19 08:17 Dose: 1 tab Documented by: Lisinopril (Zestril) 10 mg PO DAILY [facility] Last Admin: 10/02/19 08:18 Dose: 10 mg Documented by: Magnesium Hydroxide (Milk Of Magnesia) 30 ml PO BIDP PRN PRN Reason: Constipation Medroxyprogesterone Acetate (Provera) 10 mg PO DAILY [facility] Last Admin: 10/02/19 08:20 Dose: 10 mg Documented by: Melatonin (Melatonin 3mg Tablet) 3 mg PO HSP PRN PRN Reason: Insomnia Metoprolol Tartrate (Lopressor) 5 mg IV Q5M PRN PRN Reason: Heart Rate > 140 bpm Nitroglycerin (Nitrostat) 0.4 mg SL Q5M PRN PRN Reason: Chest Pain Nortriptyline HCl (Pamelor) 30 mg PO HS [facility] Last Admin: 10/01/19 20:43 Dose: 30 mg Documented by: Omeprazole (Prilosec) 20 mg PO ACB [facility] Last Admin: 10/02/19 08:16 Dose: 20 mg Documented by: Ondansetron HCl (Zofran Odt) 4 mg SL Q4-6HP PRN; Protocol PRN Reason: Nausea And Vomiting Ondansetron HCl (Zofran) 4 mg IV Q4-6HP PRN; Protocol PRN Reason: Nausea And Vomiting Oxycodone HCl (Oxycontin) 10 mg PO Q12H [facility]; Protocol Last Admin: 10/02/19 09:20 Dose: 10 mg Documented by: Polyethylene Glycol (Miralax) 17 gm PO DAILYP PRN PRN Reason: Constipation Potassium Chloride (Klor-Con) 40 meq PO DAILYP PRN PRN Reason: K+ < 3.5 Senna (Senokot) 2 tab PO [facility] Last Admin: 10/01/19 20:47 Dose: 2 tab Documented by: Senna/Docusate Sodium (Senna Plus Tablet) 1 tab PO [facility] Last Admin: 10/01/19 20:47 Dose: Not Given Documented by: Sodium Biphosphate/Sodium Phosphate (Fleets Adult) 1 dose DE Q3-4DAYS PRN PRN Reason: Constipation Sodium Chloride (Saline Flush) 10 ml IV Q8 [facility] Last Admin: 10/02/19 04:03 Dose: Not Given Documented by: Sumatriptan Succinate (Imitrex) 50 mg PO DAILYP PRN PRN Reason: Migraine Headache Tramadol HCl (Ultram) 50 mg PO Q4-6HP PRN PRN Reason: Pain Last Admin: 10/01/19 13:57 Dose: 50 mg Documented by: A/P Assessment and plan (1) Trimalleolar fracture of ankle, closed: Status: Acute Comment: Pt doing well. Discharge tomorrow. Narrative A/P Narrative: * Right ankle fracture-postop day 2. Managed per orthopedics. Anticipate SNF transfer * Pain management on as needed opioids/Tylenol. Well controlled * Anxiety disorder stable on home dose BuSpar * Hypertension stable on home dose enalapril/clonidine * Low phosphorus on replacement * Mild hyperkalemia at 5.2 improved to 4.3 * LLUVIA on CKD stage III-monitor renal function. Creatinine improved to 1 * Chronic anemia- Hgb 8.8 * Neuropathy continue gabapentin/amitriptyline * GERD continue ranitidine/PPI * History of migraine use as needed sumatriptan * Chronic pain on oxycodone/hydrocodone * Prophylaxis -Heparin subcu Plan * Continue postop care per orthopedics * Replace phosphorus * Anticipate SNF transfer * Pre-existing medical condition management as above * Continue PT/OT, nutrition support Time Spent With Patient Time: Total time spent is greater than 50% in coordination of care (as documented) at patient's floor/unit and/or counseling patient: QUALITY Stroke Symptom Onset Unknown: No VTE Deep Vein Thrombosis/Pulmonary Embolism Present on Admission: No
--- NOTE | 2019-10-02 15:27 | Orthopedic Progress Note ---
SUBJECTIVE Subjective Patient information: Note initiated : 10/02/19 at 3:25 pm Service Date, if different from initiated Date: [] Patient: Jayne Mcknight 74 y/o F admitted on 09/30/19 for Ankle Fracture . Chief Complaint: no c/o. Constitutional Vitals: Vital Signs Temp Pulse Resp BP Pulse Ox 98.8 F 77 18 131/73 100 10/02/19 12:00 10/02/19 12:00 10/02/19 12:00 10/02/19 12:00 10/02/19 12:00 Period Temp Pulse Resp BP Sys/Rivera Pulse Ox Last 24 Hr 98.2 F-98.9 F 66-88 14-18 131-174/65-88 94-100 Intake and Output 10/02/19 10/02/19 10/02/19 05:59 13:59 21:59 Intake Total 200 840 Output Total 450 350 Balance -250 490 Weight 137 lb 5 oz Patient Weight 10/03/19 05:59 Weight 137 lb 5 oz Intake & Output: Intake & Output 10/02/19 10/02/19 10/02/19 05:59 13:59 21:59 Intake Total 200 840 Output Total 450 350 Balance -250 490 Weight 137 lb 5 oz Intake: Oral 200 840 Output: Void Amount 450 350 Other: Meal Lunch Percent of Meal Consumed 75% Urine Appearance Clear Urine Color Bright Yellow Straw Urine Odor Normal OBJ DATA Labs CBC & Chem 7: 10/02/19 05:40 10/02/19 05:40 Labs: Abnormal Lab Results 10/02/19 10/02/19 10/01/19 05:40 05:40 06:19 RBC 3.00 L Hgb 8.6 L Hct 26.7 L MPV Lymphocytes % 14 L Potassium 5.2 H Carbon Dioxide 16 L 19 L BUN 27 H 37 H Creatinine 1.3 H Glucose 134 H Calcium 8.1 L 8.0 L Phosphorus 2.4 L Total Protein 5.6 L 5.4 L Albumin 2.9 L 2.9 L 10/01/19 06:19 RBC 3.08 L Hgb 8.8 L Hct 28.4 L MPV 10.5 H Lymphocytes % Potassium Carbon Dioxide BUN Creatinine Glucose Calcium Phosphorus Total Protein Albumin bandages c/d/i NVI-distal Meds: Medications Acetaminophen (Tylenol) 650 mg PO Q4-6HP PRN; Protocol PRN Reason: Per Pain Protocol/Fever > 101 Last Admin: 10/01/19 13:58 Dose: 650 mg Documented by: Hydrocodone Bitart/Acetaminophen ([place] 10/325mg) 1 - 2 tab PO Q4HP PRN; Protocol PRN Reason: Per Pain Protocol Last Admin: 10/02/19 10:28 Dose: 1 tab Documented by: Bisacodyl (Dulcolax) 10 mg AL Q2-3DAYS PRN PRN Reason: Constipation Buspirone HCl (Buspar) 15 mg PO BID [facility] Last Admin: 10/02/19 08:18 Dose: 15 mg Documented by: Clonidine HCl (Catapres) 0.1 mg PO BID [facility] Last Admin: 10/02/19 08:18 Dose: 0.1 mg Documented by: Docusate Sodium (Colace) 100 mg PO BID [facility] Last Admin: 10/02/19 08:17 Dose: 100 mg Documented by: Famotidine (Pepcid) 40 mg PO DAILY [facility] Last Admin: 10/02/19 08:17 Dose: 40 mg Documented by: Gabapentin (Neurontin) 400 mg PO HS [facility] Last Admin: 10/01/19 20:43 Dose: 400 mg Documented by: Heparin Sodium (Porcine) (Heparin) 5,000 unit SQ Q12 [facility] Last Admin: 10/02/19 08:20 Dose: 5,000 unit Documented by: Hydralazine HCl (Apresoline) 10 mg IV Q4-6HP PRN PRN Reason: Hypertension Acetaminophen (Ofirmev) 650 mg in 65 mls @ 130 mls/hr IV Q6HP PRN; Protocol PRN Reason: Per Pain Protocol/Fever > 101 Magnesium Sulfate (Magnesium Sulfate) 2 gm in 50 mls @ 50 mls/hr IV UD PRN PRN Reason: MG = or < 1.7 Last Admin: 10/01/19 14:14 Dose: 50 mls/hr Documented by: Iron Carb/Multivit/[place]/Folic Acid (Multivitamin W/Minerals) 1 tab PO DAILY [facility] Last Admin: 10/02/19 08:17 Dose: 1 tab Documented by: Lisinopril (Zestril) 10 mg PO DAILY [facility] Last Admin: 10/02/19 08:18 Dose: 10 mg Documented by: Magnesium Hydroxide (Milk Of Magnesia) 30 ml PO BIDP PRN PRN Reason: Constipation Medroxyprogesterone Acetate (Provera) 10 mg PO DAILY [facility] Last Admin: 10/02/19 08:20 Dose: 10 mg Documented by: Melatonin (Melatonin 3mg Tablet) 3 mg PO HSP PRN PRN Reason: Insomnia Metoprolol Tartrate (Lopressor) 5 mg IV Q5M PRN PRN Reason: Heart Rate > 140 bpm Nitroglycerin (Nitrostat) 0.4 mg SL Q5M PRN PRN Reason: Chest Pain Nortriptyline HCl (Pamelor) 30 mg PO [facility] Last Admin: 10/01/19 20:43 Dose: 30 mg Documented by: Omeprazole (Prilosec) 20 mg PO ACB [facility] Last Admin: 10/02/19 08:16 Dose: 20 mg Documented by: Ondansetron HCl (Zofran Odt) 4 mg SL Q4-6HP PRN; Protocol PRN Reason: Nausea And Vomiting Ondansetron HCl (Zofran) 4 mg IV Q4-6HP PRN; Protocol PRN Reason: Nausea And Vomiting Oxycodone HCl (Oxycontin) 10 mg PO Q12H [facility]; Protocol Last Admin: 10/02/19 09:20 Dose: 10 mg Documented by: Polyethylene Glycol (Miralax) 17 gm PO DAILYP PRN PRN Reason: Constipation Potassium Chloride (Klor-Con) 40 meq PO DAILYP PRN PRN Reason: K+ < 3.5 Potassium/Phosphorus/Sodium (Neutra Phos) 2 packet PO BID [facility] Stop: 10/03/19 08:00 Senna (Senokot) 2 tab PO [facility] Last Admin: 10/01/19 20:47 Dose: 2 tab Documented by: Senna/Docusate Sodium (Senna Plus Tablet) 1 tab PO [facility] Last Admin: 10/01/19 20:47 Dose: Not Given Documented by: Sodium Biphosphate/Sodium Phosphate (Fleets Adult) 1 dose AL Q3-4DAYS PRN PRN Reason: Constipation Sodium Chloride (Saline Flush) 10 ml IV Q8 [facility] Last Admin: 10/02/19 04:03 Dose: Not Given Documented by: Sumatriptan Succinate (Imitrex) 50 mg PO DAILYP PRN PRN Reason: Migraine Headache Tramadol HCl (Ultram) 50 mg PO Q4-6HP PRN PRN Reason: Pain Last Admin: 10/01/19 13:57 Dose: 50 mg Documented by: A/P Assessment and plan (1) Trimalleolar fracture of ankle, closed: Status: Acute Comment: tentative discharge to swing bed 1-2 days due to other co-morbidities and difficulty with ambulation. Time Spent With Patient Time: Total time spent is greater than 50% in coordination of care (as documented) at patient's floor/unit and/or counseling patient:
--- NOTE | 2019-10-02 15:42 | Internal Med Progress Note ---
SUBJECTIVE Subjective Patient information: Note initiated : 10/02/19 at 3:39 pm Service Date, if different from initiated Date: [] Patient: Jayne Mcknight 74 y/o F admitted on 09/30/19 for Ankle Fracture . Chief Complaint: [] Interval history: Ms. Mcknight is a 74 year old F with a history of PMR/COPD/CKD who normally uses a walker to ambulate. Patient lives in [place] and is out fertilizing her tomato plants when she got off balance and fell landing on her right side sustaining injury to the ankle. She was taken to the [place] ER where initial work-up was consistent with fracture dislocation right ankle. She underwent reduction and subsequently orthopedics was consulted. Orthopedic recommended transferring patient to [facility] for surgical intervention. I received a verbal signout from Madison garcia at [place] on telephone. On arrival patient is alert and oriented. She denies active distress except for pain. She endorses history as above. She denies respiratory events including lightheadedness dizziness, chest pain, palpitation. Labs and medication list was reviewed 09/30-patient postop day 1 trimalleolar ankle fracture repair. Complains of significant pain on pain management as per orthopedics. No overnight fever chills. Stable hemodynamics. Potassium 5.2 creatinine 1.3. Discharge planning per orthopedics. 10/01-patient clinically improved however requiring 2 person max assist. Case management coordinating SNF transfer as per recommendation of orthopedics. Ongoing PT OT. Postop pain in good control. Hemoglobin 8.6, potassium down to 4.3, creatinine down to 1. Phosphorus 2.4 on replacement. 10/02 Constitutional Vitals: Vital Signs Temp Pulse Resp BP Pulse Ox 98.8 F 77 18 131/73 100 10/02/19 12:00 10/02/19 12:00 10/02/19 12:00 10/02/19 12:00 10/02/19 12:00 Period Temp Pulse Resp BP Sys/Rivera Pulse Ox Last 24 Hr 98.2 F-98.9 F 66-88 14-18 131-174/65-88 94-100 Intake and Output 10/02/19 10/02/19 10/02/19 05:59 13:59 21:59 Intake Total 200 840 Output Total 450 350 Balance -250 490 Weight 62.284 kg Patient Weight 10/03/19 05:59 Weight 62.284 kg Intake & Output: Intake & Output 10/02/19 10/02/19 10/02/19 05:59 13:59 21:59 Intake Total 200 840 Output Total 450 350 Balance -250 490 Weight 62.284 kg Intake: Oral 200 840 Output: Void Amount 450 350 Other: Meal Lunch Percent of Meal Consumed 75% Urine Appearance Clear Urine Color Bright Yellow Straw Urine Odor Normal Exam: General: Alert, Awake, No acute Distress Eyes/N/T: EOMI Head/Neck: neck supple, CV: RRR, No murmurs, Pulm: Clear b/l, no wheezing/rhonchi/rales Abd: soft, nontender, +BS x4 Ext: no clubbing/cyanosis/edema, right ankle dressings Neuro: Alert, no focal deficits, moves all extremities, Skin: warm/dry OBJ DATA Labs CBC & Chem 7: 10/02/19 05:40 10/02/19 05:40 Labs: Abnormal Lab Results 10/02/19 10/02/19 10/01/19 05:40 05:40 06:19 RBC 3.00 L Hgb 8.6 L Hct 26.7 L MPV Lymphocytes % 14 L Potassium 5.2 H Carbon Dioxide 16 L 19 L BUN 27 H 37 H Creatinine 1.3 H Glucose 134 H Calcium 8.1 L 8.0 L Phosphorus 2.4 L Total Protein 5.6 L 5.4 L Albumin 2.9 L 2.9 L 10/01/19 06:19 RBC 3.08 L Hgb 8.8 L Hct 28.4 L MPV 10.5 H Lymphocytes % Potassium Carbon Dioxide BUN Creatinine Glucose Calcium Phosphorus Total Protein Albumin Meds: Medications Acetaminophen (Tylenol) 650 mg PO Q4-6HP PRN; Protocol PRN Reason: Per Pain Protocol/Fever > 101 Last Admin: 10/01/19 13:58 Dose: 650 mg Documented by: Hydrocodone Bitart/Acetaminophen ([place] 10/325mg) 1 - 2 tab PO Q4HP PRN; Protocol PRN Reason: Per Pain Protocol Last Admin: 10/02/19 10:28 Dose: 1 tab Documented by: Bisacodyl (Dulcolax) 10 mg [place] Q2-3DAYS PRN PRN Reason: Constipation Buspirone HCl (Buspar) 15 mg PO BID [facility] Last Admin: 10/02/19 08:18 Dose: 15 mg Documented by: Clonidine HCl (Catapres) 0.1 mg PO BID [facility] Last Admin: 10/02/19 08:18 Dose: 0.1 mg Documented by: Docusate Sodium (Colace) 100 mg PO BID [facility] Last Admin: 10/02/19 08:17 Dose: 100 mg Documented by: Famotidine (Pepcid) 40 mg PO DAILY [facility] Last Admin: 10/02/19 08:17 Dose: 40 mg Documented by: Gabapentin (Neurontin) 400 mg PO [facility] Last Admin: 10/01/19 20:43 Dose: 400 mg Documented by: Heparin Sodium (Porcine) (Heparin) 5,000 unit SQ Q12 [facility] Last Admin: 10/02/19 08:20 Dose: 5,000 unit Documented by: Hydralazine HCl (Apresoline) 10 mg IV Q4-6HP PRN PRN Reason: Hypertension Acetaminophen (Ofirmev) 650 mg in 65 mls @ 130 mls/hr IV Q6HP PRN; Protocol PRN Reason: Per Pain Protocol/Fever > 101 Magnesium Sulfate (Magnesium Sulfate) 2 gm in 50 mls @ 50 mls/hr IV UD PRN PRN Reason: MG = or < 1.7 Last Admin: 10/01/19 14:14 Dose: 50 mls/hr Documented by: Iron Carb/Multivit/Grain Combine Driver/Folic Acid (Multivitamin W/Minerals) 1 tab PO DAILY [facility] Last Admin: 10/02/19 08:17 Dose: 1 tab Documented by: Lisinopril (Zestril) 10 mg PO DAILY [facility] Last Admin: 10/02/19 08:18 Dose: 10 mg Documented by: Magnesium Hydroxide (Milk Of Magnesia) 30 ml PO BIDP PRN PRN Reason: Constipation Medroxyprogesterone Acetate (Provera) 10 mg PO DAILY [facility] Last Admin: 10/02/19 08:20 Dose: 10 mg Documented by: Melatonin (Melatonin 3mg Tablet) 3 mg PO HSP PRN PRN Reason: Insomnia Metoprolol Tartrate (Lopressor) 5 mg IV Q5M PRN PRN Reason: Heart Rate > 140 bpm Nitroglycerin (Nitrostat) 0.4 mg SL Q5M PRN PRN Reason: Chest Pain Nortriptyline HCl (Pamelor) 30 mg PO [facility] Last Admin: 10/01/19 20:43 Dose: 30 mg Documented by: Omeprazole (Prilosec) 20 mg PO ACB [facility] Last Admin: 10/02/19 08:16 Dose: 20 mg Documented by: Ondansetron HCl (Zofran Odt) 4 mg SL Q4-6HP PRN; Protocol PRN Reason: Nausea And Vomiting Ondansetron HCl (Zofran) 4 mg IV Q4-6HP PRN; Protocol PRN Reason: Nausea And Vomiting Oxycodone HCl (Oxycontin) 10 mg PO Q12H [facility]; Protocol Last Admin: 10/02/19 09:20 Dose: 10 mg Documented by: Polyethylene Glycol (Miralax) 17 gm PO DAILYP PRN PRN Reason: Constipation Potassium Chloride (Klor-Con) 40 meq PO DAILYP PRN PRN Reason: K+ < 3.5 Potassium/Phosphorus/Sodium (Neutra Phos) 2 packet PO BID [facility] Stop: 10/03/19 08:00 Senna (Senokot) 2 tab PO [facility] Last Admin: 10/01/19 20:47 Dose: 2 tab Documented by: Senna/Docusate Sodium (Senna Plus Tablet) 1 tab PO [facility] Last Admin: 10/01/19 20:47 Dose: Not Given Documented by: Sodium Biphosphate/Sodium Phosphate (Fleets Adult) 1 dose [place] Q3-4DAYS PRN PRN Reason: Constipation Sodium Chloride (Saline Flush) 10 ml IV Q8 [facility] Last Admin: 10/02/19 04:03 Dose: Not Given Documented by: Sumatriptan Succinate (Imitrex) 50 mg PO DAILYP PRN PRN Reason: Migraine Headache Tramadol HCl (Ultram) 50 mg PO Q4-6HP PRN PRN Reason: Pain Last Admin: 10/01/19 13:57 Dose: 50 mg Documented by: A/P Narrative A/P Narrative: A: *Right ankle fracture: s/p ORIF (09/29). Managed per orthopedics. Anticipate SNF transfer -Pain management on as needed opioids/Tylenol. Well controlled *Anxiety:home dose BuSpar *HTN: home dose enalapril/clonidine *Mild hyperkalemia at 5.2 improved to 4.3 *LLUVIA on CKD III: improved *Chronic anemia: Hgb 8.8 *Neuropathy: home gabapentin/amitriptyline *GERD: *History of migraine: uses as needed sumatriptan *Chronic pain: on oxycodone/hydrocodone Plan: -Continue postop care per orthopedics -Replace phosphorus -Anticipate SNF transfer -pt/ot -Continue PT/OT, nutrition support -ppx: heparin Time Spent With Patient Time: Total time spent is greater than 50% in coordination of care (as documented) at patient's floor/unit and/or counseling patient: QUALITY Stroke Symptom Onset Unknown: No VTE Deep Vein Thrombosis/Pulmonary Embolism Present on Admission: No
[2019-10-02] MEDS: NORTRIPTYLINE 10 MG CAPSULE PO SCH (20:58)
[2019-10-02] MEDS: GABAPENTIN 100 MG CAPSULE PO SCH (20:58)
[2019-10-02] MEDS: SENNOSIDES 1 TABLET PO SCH (20:59)
[2019-10-02] MEDS: SENNOSIDES/DOCUSATE SODIUM 1 TAB TABLET PO SCH (20:59)
[2019-10-02] MEDS ORDERED: NEUTRA PHOS 1 PACKET PO SCH (21:00)
[2019-10-03] MEDS: HYDROcodone/APAP 10/325MG TABLET PO PRN (00:16)
[2019-10-03] MEDS: 0.9 % SODIUM CHLORIDE 10 ML SYRINGE IV SCH ×2 (04:40→18:36)
--- NOTE | 2019-10-03 07:50 | Internal Med Progress Note ---
SUBJECTIVE Subjective Patient information: Note initiated : 10/03/19 at 7:49 am Service Date, if different from initiated Date: [] Patient: Jayne Mcknight 74 y/o F admitted on 09/30/19 for Ankle Fracture . Chief Complaint: [] Interval history: Ms. Mcknight is a 74 year old F with a history of PMR/COPD/CKD who normally uses a walker to ambulate. Patient lives in [place] and is out fertilizing her tomato plants when she got off balance and fell landing on her right side sustaining injury to the ankle. She was taken to the [place] ER where initial work-up was consistent with fracture dislocation right ankle. She underwent reduction and subsequently orthopedics was consulted. Orthopedic recommended transferring patient to [facility] for surgical intervention. I received a verbal signout from Madison garcia at [place] on telephone. On arrival patient is alert and oriented. She denies active distress except for pain. She endorses history as above. She denies respiratory events including lightheadedness dizziness, chest pain, palpitation. Labs and medication list was reviewed 09/30-patient postop day 1 trimalleolar ankle fracture repair. Complains of significant pain on pain management as per orthopedics. No overnight fever chills. Stable hemodynamics. Potassium 5.2 creatinine 1.3. Discharge planning per orthopedics. 10/01-patient clinically improved however requiring 2 person max assist. Case management coordinating SNF transfer as per recommendation of orthopedics. Ongoing PT OT. Postop pain in good control. Hemoglobin 8.6, potassium down to 4.3, creatinine down to 1. Phosphorus 2.4 on replacement. 10/02 Doing well. No new complaints. No events overnight. Sitting up in chair eating breakfast. Review of Systems: denies headache/fever/chills/nausea/vomiting/chest or abdominal pain/cough/dyspnea/diarrhea. Otherwise see above. Constitutional Vitals: Vital Signs Temp Pulse Resp BP Pulse Ox 98.5 F 81 18 136/85 100 10/03/19 07:46 10/03/19 07:46 10/03/19 07:46 10/03/19 07:46 10/03/19 07:46 Period Temp Pulse Resp BP Sys/Rivera Pulse Ox Last 24 Hr 98.3 F-99.0 F 74-85 12-18 116-142/64-85 95-100 Intake and Output 10/02/19 10/03/19 10/03/19 21:59 05:59 13:59 Intake Total 300 600 Output Total 750 475 Balance -450 125 Weight 61.689 kg Intake & Output: Intake & Output 10/02/19 10/03/19 10/03/19 21:59 05:59 13:59 Intake Total 300 600 Output Total 750 475 Balance -450 125 Weight 61.689 kg Intake: Oral 300 600 Output: Void Amount 750 475 Other: Urine Appearance Clear Urine Color Bright Yellow Urine Odor Normal Exam: General: Alert, Awake, No acute Distress Eyes/N/T: EOMI Head/Neck: neck supple, CV: RRR, 2/6 SM, Pulm: Clear b/l, no wheezing/rhonchi/rales Abd: soft, nontender, +BS x4 Ext: no clubbing/cyanosis, 1+ LLE edema, right ankle dressings Neuro: Alert, no focal deficits, moves all extremities, Skin: warm/dry OBJ DATA Labs CBC & Chem 7: 10/02/19 05:40 10/02/19 05:40 Labs: Abnormal Lab Results 10/02/19 10/02/19 10/01/19 05:40 05:40 06:19 RBC 3.00 L Hgb 8.6 L Hct 26.7 L MPV Lymphocytes % 14 L Potassium 5.2 H Carbon Dioxide 16 L 19 L BUN 27 H 37 H Creatinine 1.3 H Glucose 134 H Calcium 8.1 L 8.0 L Phosphorus 2.4 L Total Protein 5.6 L 5.4 L Albumin 2.9 L 2.9 L 10/01/19 06:19 RBC 3.08 L Hgb 8.8 L Hct 28.4 L MPV 10.5 H Lymphocytes % Potassium Carbon Dioxide BUN Creatinine Glucose Calcium Phosphorus Total Protein Albumin Meds: Medications Acetaminophen (Tylenol) 650 mg PO Q4-6HP PRN; Protocol PRN Reason: Per Pain Protocol/Fever > 101 Last Admin: 10/01/19 13:58 Dose: 650 mg Documented by: Hydrocodone Bitart/Acetaminophen ([place] 10/325mg) 1 - 2 tab PO Q4HP PRN; Protocol PRN Reason: Per Pain Protocol Last Admin: 10/03/19 00:16 Dose: 2 tab Documented by: Bisacodyl (Dulcolax) 10 mg [place] Q2-3DAYS PRN PRN Reason: Constipation Buspirone HCl (Buspar) 15 mg PO BID [facility] Last Admin: 10/02/19 20:58 Dose: 15 mg Documented by: Clonidine HCl (Catapres) 0.1 mg PO BID [facility] Last Admin: 10/02/19 20:58 Dose: 0.1 mg Documented by: Docusate Sodium (Colace) 100 mg PO BID [facility] Last Admin: 10/02/19 20:58 Dose: 100 mg Documented by: Famotidine (Pepcid) 40 mg PO DAILY [facility] Last Admin: 10/02/19 08:17 Dose: 40 mg Documented by: Gabapentin (Neurontin) 400 mg PO HS [facility] Last Admin: 10/02/19 20:58 Dose: 400 mg Documented by: Heparin Sodium (Porcine) (Heparin) 5,000 unit SQ Q12 [facility] Last Admin: 10/02/19 20:58 Dose: 5,000 unit Documented by: Hydralazine HCl (Apresoline) 10 mg IV Q4-6HP PRN PRN Reason: Hypertension Acetaminophen (Ofirmev) 650 mg in 65 mls @ 130 mls/hr IV Q6HP PRN; Protocol PRN Reason: Per Pain Protocol/Fever > 101 Magnesium Sulfate (Magnesium Sulfate) 2 gm in 50 mls @ 50 mls/hr IV UD PRN PRN Reason: MG = or < 1.7 Last Admin: 10/01/19 14:14 Dose: 50 mls/hr Documented by: Iron Carb/Multivit/Breeder Service Technician/Folic Acid (Multivitamin W/Minerals) 1 tab PO DAILY [facility] Last Admin: 10/02/19 08:17 Dose: 1 tab Documented by: Lisinopril (Zestril) 10 mg PO DAILY [facility] Last Admin: 10/02/19 08:18 Dose: 10 mg Documented by: Magnesium Hydroxide (Milk Of Magnesia) 30 ml PO BIDP PRN PRN Reason: Constipation Medroxyprogesterone Acetate (Provera) 10 mg PO DAILY [facility] Last Admin: 10/02/19 08:20 Dose: 10 mg Documented by: Melatonin (Melatonin 3mg Tablet) 3 mg PO HSP PRN PRN Reason: Insomnia Metoprolol Tartrate (Lopressor) 5 mg IV Q5M PRN PRN Reason: Heart Rate > 140 bpm Nitroglycerin (Nitrostat) 0.4 mg SL Q5M PRN PRN Reason: Chest Pain Nortriptyline HCl (Pamelor) 30 mg PO [facility] Last Admin: 10/02/19 20:58 Dose: 30 mg Documented by: Omeprazole (Prilosec) 20 mg PO ACB [facility] Last Admin: 10/02/19 08:16 Dose: 20 mg Documented by: Ondansetron HCl (Zofran Odt) 4 mg SL Q4-6HP PRN; Protocol PRN Reason: Nausea And Vomiting Ondansetron HCl (Zofran) 4 mg IV Q4-6HP PRN; Protocol PRN Reason: Nausea And Vomiting Oxycodone HCl (Oxycontin) 10 mg PO Q12H [facility]; Protocol Last Admin: 10/02/19 20:59 Dose: 10 mg Documented by: Polyethylene Glycol (Miralax) 17 gm PO DAILYP PRN PRN Reason: Constipation Last Admin: 10/02/19 20:58 Dose: 17 gm Documented by: Potassium Chloride (Klor-Con) 40 meq PO DAILYP PRN PRN Reason: K+ < 3.5 Potassium/Phosphorus/Sodium (Neutra Phos) 2 packet PO BID [facility] Stop: 10/03/19 08:00 Last Admin: 10/02/19 20:58 Dose: 2 packet Documented by: Francine (Senokot) 2 tab PO [facility] Last Admin: 10/02/19 20:59 Dose: 2 tab Documented by: Sodium Biphosphate/Sodium Phosphate (Fleets Adult) 1 dose [place] Q3-4DAYS PRN PRN Reason: Constipation Sodium Chloride (Saline Flush) 10 ml IV Q8 [facility] Last Admin: 10/03/19 04:40 Dose: 10 ml Documented by: Sumatriptan Succinate (Imitrex) 50 mg PO DAILYP PRN PRN Reason: Migraine Headache Tramadol HCl (Ultram) 50 mg PO Q4-6HP PRN PRN Reason: Pain Last Admin: 10/01/19 13:57 Dose: 50 mg Documented by: A/P Assessment and plan (1) Trimalleolar fracture of ankle, closed: Status: Acute Comment: tentative discharge to swing bed 1-2 days due to other co-morbidities and difficulty with ambulation. Narrative A/P Narrative: A: *Right ankle fracture: s/p ORIF (09/29). Managed per orthopedics. Anticipate SNF transfer -Pain management on as needed opioids/Tylenol. Well controlled *Anxiety:home dose BuSpar *HTN: home dose enalapril/clonidine *Mild hyperkalemia at 5.2 improved to 4.3 *LLUVIA on CKD III: improved *Chronic anemia: Hgb 8.8 *Neuropathy: home gabapentin/amitriptyline *GERD: *History of migraine: uses as needed sumatriptan *Chronic pain: on oxycodone/hydrocodone Plan: -Continue postop care per orthopedics -Replace phosphorus -Anticipate SNF transfer -pt/ot -Continue PT/OT, nutrition support -ppx: heparin Time Spent With Patient Time: Total time spent is greater than 50% in coordination of care (as documented) at patient's floor/unit and/or counseling patient: QUALITY Stroke Symptom Onset Unknown: No VTE Deep Vein Thrombosis/Pulmonary Embolism Present on Admission: No
[2019-10-03 08:18] LABS: Hematocrit 27.3 % (34.1-44.9); Hemoglobin 8.5 g/dL (11.2-15.7); Mean Cell Volume 90.1 fL (80.0-100.0); Mean Corpuscular HGB Conc 31.1 g/dL (31.0-36.0); Mean Platelet Volume 10.1 fL (7.4-10.4); Platelet Count 207 K/mcL (140-440); RBC 3.03 M/mcL (3.59-5.38); Red Cell Distribution Width 14.4 % (11.5-14.5); WBC 6.4 K/mcL (4.50-11.00)
[2019-10-03 08:34] LABS: Bilirubin,Direct < 0.2 mg/dL (0.0-0.3); Chloride 104 mmol/L (96-108)
[2019-10-03 08:45] LABS: ALT/SGPT < 5 U/l (0-40); AST/SGOT 15 U/l (0-37); Albumin 2.7 gm/dL (3.2-5.2); Albumin/Globulin Ratio 0.9 (1.0-2.3); Alkaline Phosphatase 52 U/L (39-117); Bilirubin,Total 0.2 mg/dL (0.0-1.0); Blood Urea Nitrogen 24 mg/dl (8-23); Calcium 7.9 mg/dl (8.6-10.4); Carbon Dioxide 18 mmol/L (22-30); Globulin 2.9 gm/dL (2.2-3.7); Glomerular Filtration Rate 49; Glucose 92 mg/dL (70-105); Lactate Dehydrogenase 162 U/L (94-250); Phosphorous 3.1 mg/dL (2.7-4.5); Triglycerides 100 mg/dl (<150); Uric Acid 5.4 mg/dL (2.5-8.0)
[2019-10-03 08:56] LABS: Eosinophils % (Manual) 1 % (0-7); Lymphocytes % 22 % (15-49); Monocytes % (Manual) 9 % (1-12); Platelet Estimate NORMAL (NORMAL); RBC Morphology NORMAL (NORMAL); Segmented Neutrophils % 68 % (38-78)
[2019-10-03] MEDS: busPIRone 15 MG TABLET PO SCH (09:00)
[2019-10-03] MEDS: OMEPRAZOLE 20 MG CAPSULE PO SCH (09:00)
[2019-10-03] MEDS: LISINOPRIL 10 MG TABLET PO SCH (09:01)
[2019-10-03] MEDS: FAMOTIDINE 20 MG TABLET PO SCH (09:01)
[2019-10-03] MEDS: DOCUSATE SODIUM 100 MG CAPSULE PO SCH (09:01)
[2019-10-03] MEDS: MULTIVIT,THER IRON,CA,FA & MIN 1 TABLET PO SCH (09:01)
[2019-10-03] MEDS: cloNIDine HCL 0.1 MG TABLET PO SCH (09:01)
[2019-10-03] MEDS: HEPARIN 5,000 UNIT/ML VIAL SQ SCH (09:03)
[2019-10-03] MEDS: oxyCODONE 10 MG TAB.ER.12H PO SCH (09:09)
[2019-10-03] MEDS: medroxyPROGESTERone 10 MG TABLET PO SCH (09:11)
--- NOTE | 2019-10-03 11:34 | Discharge Summary ---
Discharge Provider Provider Patient information: Note initiated : 10/03/19 at 11:32 am Service Date, if different from initiated Date: [] Patient: Jayne Mcknight 74 y/o F admitted on 09/30/19 for Ankle Fracture . Chief Complaint: [] Date of admission: 09/30/19 13:23 Discharge date: 10/03/19 Primary care physician: Shad Ross Discharge Meds Discharge Medications Home Medications gabapentin [Neurontin] 400 mg PO HS 01/21/16 [History Confirmed 09/30/19 Last Taken 09/29/19 21:00] nitroglycerin 0.4 mg SL Q5M PRN 01/21/16 [History Confirmed 09/30/19 Last Taken Unknown] buspirone 15 mg PO BID 09/30/19 [History Confirmed 09/30/19 Last Taken 09/29/19 21:00] clonidine HCl 0.1 mg PO BID 09/30/19 [History Confirmed 09/30/19 Last Taken 09/29/19 21:00] enalapril maleate 10 mg PO DAILY 09/30/19 [History Confirmed 09/30/19 Last Taken 09/29/19 08:00] famotidine 40 mg PO DAILY 09/30/19 [History Confirmed 09/30/19 Last Taken 09/29/19 08:00] medroxyprogesterone 10 mg PO DAILY 09/30/19 [History Confirmed 09/30/19 Last Taken 09/29/19 08:00] nortriptyline 30 mg PO HS 09/30/19 [History Confirmed 09/30/19 Last Taken 09/29/19 21:00] omeprazole 20 mg PO DAILY 09/30/19 [History Confirmed 09/30/19 Last Taken 09/29/19 08:00] ondansetron HCl 4 mg PO PRN PRN 09/30/19 [History Confirmed 09/30/19 Last Taken 09/23/19] sumatriptan succinate 50 mg PO PRN PRN 09/30/19 [History Confirmed 09/30/19 Last Taken 09/23/19] tramadol 50 mg PO PRN PRN 09/30/19 [History Confirmed 09/30/19 Last Taken Un known] hydrocodone-acetaminophen 1 tab PO Q4HP PRN #30 tab 10/03/19 [Rx Last Taken Unknown] COURSE Hospital Course Hospital course: Ms. Cronan is a 74 year old F with a history of PMR/COPD/CKD who normally uses a walker to ambulate. Patient lives in [place] and is out fertilizing her tomato plants when she got off balance and fell landing on her right side sustaining injury to the ankle. She was taken to the [place] ER where initial work-up was consistent with fracture dislocation right ankle. She underwent reduction and subsequently orthopedics was consulted. Orthopedic recommended transferring patient to [facility] for surgical intervention. I received a verbal signout from Madison garcia at [place] on telephone. On arrival patient is alert and oriented. She denies active distress except for pain. She endorses history as above. She denies respiratory events including lightheadedness dizziness, chest pain, palpitation. Labs and medication list was reviewed 09/30-patient postop day 1 trimalleolar ankle fracture repair. Complains of significant pain on pain management as per orthopedics. No overnight fever chills. Stable hemodynamics. Potassium 5.2 creatinine 1.3. Discharge planning per orthopedics. 10/01-patient clinically improved however requiring 2 person max assist. Case management coordinating SNF transfer as per recommendation of orthopedics. Ongoing PT OT. Postop pain in good control. Hemoglobin 8.6, potassium down to 4.3, creatinine down to 1. Phosphorus 2.4 on replacement. 10/02 Doing well. No new complaints. No events overnight. Sitting up in chair eating breakfast. A: *Right ankle fracture: s/p ORIF (09/29). Managed per orthopedics. *Anxiety:home dose BuSpar *HTN: home dose enalapril/clonidine *Mild hyperkalemia at 5.2 improved to 4.3 *LLUVIA on CKD III: improved *Chronic anemia: Hgb 8.8 *Neuropathy: home gabapentin/amitriptyline *GERD: *History of migraine: uses as needed sumatriptan *Chronic pain: on oxycodone/hydrocodone Discharge diagnosis: Right ankle fracture anxiety hypertension acute kidney injury Secondary discharge diagnosis: Chronic knee neuropathy GERD chronic pain Time Spent with Patient Time attestation: Total time spent providing and/or coordinating discharge services: Time spent: Greater than 30 minutes EXAM Constitutional Vitals: Temp Pulse Resp BP Pulse Ox 98.5 F 81 18 136/85 100 10/03/19 07:46 10/03/19 07:46 10/03/19 07:46 10/03/19 07:46 10/03/19 07:46 Discharge Data Data Completed and Pending Labs on day of discharge: Labs from last 24 hours 10/03/19 10/03/19 06:11 06:11 WBC 6.4 RBC 3.03 L Hgb 8.5 L Hct 27.3 L MCV 90.1 MCH 28.1 MCHC 31.1 RDW 14.4 Plt Count 207 MPV 10.1 Total Counted 100 Seg Neutrophils % 68 Band Neutrophils % Not Reportable Lymphocytes % 22 Monocytes % (Manual) 9 Eosinophils % (Manual) 1 Platelet Estimate Normal RBC Morphology Normal Sodium 135 Potassium 4.6 Chloride 104 Carbon Dioxide 18 L Anion Gap 13.0 BUN 24 H Creatinine 1.1 GFR Calculation 49 Glucose 92 Uric Acid 5.4 Calcium 7.9 L Phosphorus 3.1 Magnesium 2.1 Total Bilirubin 0.2 Direct Bilirubin < 0.2 GGT 17 AST 15 ALT < 5 Alkaline Phosphatase 52 Lactate Dehydrogenase 162 Total Protein 5.6 L Albumin 2.7 L Globulin 2.9 Albumin/Globulin Ratio 0.9 L Triglycerides 100 Discharge Plan Patient/Caregiver Discharge Instructions Activity: as per physical therapy Diet: Regular Diet Activity Restrictions/Additional Instructions: Follow-up with PCP in 3 to 7 days. Prescriptions: New hydrocodone-acetaminophen 10-325 mg Tablet 1 tab PO Q4HP PRN (Reason: Per Pain Protocol) Qty: 30 RF: 0 Continued nitroglycerin 0.4 MG tablet, sublingual 0.4 mg SL Q5M PRN (Reason: Chest Pain) RF: 0 gabapentin [Neurontin] 100 MG capsule 400 mg PO HS RF: 0 famotidine 40 mg tablet 40 mg PO DAILY RF: 0 buspirone 15 mg tablet 15 mg PO BID RF: 0 clonidine HCl 0.1 mg tablet 0.1 mg PO BID RF: 0 enalapril maleate 10 mg tablet 10 mg PO DAILY RF: 0 medroxyprogesterone 10 mg tablet 10 mg PO DAILY RF: 0 nortriptyline 10 mg capsule 30 mg PO HS RF: 0 omeprazole 20 mg capsule,delayed release(DR/EC) 20 mg PO DAILY RF: 0 ondansetron HCl 4 mg tablet 4 mg PO PRN PRN (Reason: Nausea) RF: 0 sumatriptan succinate 50 mg tablet 50 mg PO PRN PRN (Reason: Migraine Headache) RF: 0 tramadol 50 mg tablet 50 mg PO PRN PRN (Reason: Pain) RF: 0 Discontinued celecoxib 100 mg capsule 100 mg PO DAILY RF: 0 oxycodone [OxyContin] 10 mg tablet,oral only,ext.rel.12 hr 10 mg PO Q12H RF: 0 Follow Up Plan Follow up with: Gerber Raya MD [Physician] - Patient Disposition: Xfer SNF Rehab Potential: Fair I certify that the patient requires SNF services: Yes Overall status at discharge: patient is progressing back to baseline Discharge Orders: Discharge Order (Routine); Ordered 10/03/19 Ordered By: Prudencio Garcia [facility] VTE Deep Vein Thrombosis/Pulmonary Embolism Present on Admission: No
== END 2019-10-03 16:25 | DRG 493 ==
LOC: MEDSUR 13:22 → SSSU 13:34
PROVIDERS: ADMIT Internal Medicine; ATTEND Internal Medicine